=== PATIENT | male | born 1940 | race Caucasian/White ===

== ENCOUNTER 2025-10-21 08:49 | Emergency (ER) | payer MEDICARE, OTHER ==
[~2025-10-21] VITALS: Ht 152.4 cm; Wt 60.8 kg
[2025-10-21] MEDS: IV NS 0.9% 1,000 ML BAG IV ONE (09:23)
[2025-10-21] MEDS ORDERED: METOCLOPRAMIDE HCL 10 MG/2 ML VIAL ONE (09:24)
[2025-10-21] MEDS ORDERED: dexaMETHasone SOD PHOSPHATE 1 ML ONE (09:24)
[2025-10-21] MEDS ORDERED: ACETAMINOPHEN ES 500 MG TABLET ONE (09:25)
[2025-10-21] MEDS: dexaMETHasone SOD PHOSPHATE 10 MG/ML VIAL IV ONE (09:34)
[2025-10-21] MEDS: METOCLOPRAMIDE HCL 10 MG/2 ML VIAL IV ONE (09:34)
[2025-10-21] MEDS: ACETAMINOPHEN ES 500 MG TABLET PO ONE (09:34)
[2025-10-21 09:36] LABS: PLATELET COUNT (AUTO) 354 K/uL (150-450); RED BLOOD CELL COUNT(AUTO) 4.59 MIL/uL (4.5-6.0); RED CELL DISTRIBUTION WIDTH 12.9 % (11.5-15.0); WHITE BLOOD COUNT (AUTO) 4.8 K/uL (4.3-11.0)
[2025-10-21 09:38] LABS: CALCIUM, SERUM 8.5 mg/dL (8.5-10.1); CREATININE 0.7 mg/dL (0.6-1.3); SODIUM SERUM 131.0 mmol/L (136-145); UREA NITROGEN, BLOOD 11.0 mg/dL (7-18)
[2025-10-21 10:50] VITALS: BP 133/72; TEMP 98.4; O2SAT 98
[2025-10-21 11:01] LABS: APPEARANCE,URINE CLEAR (CLEAR); BLOOD, URINE TRACE-INTA Ery/uL (NEGATIVE); LEUKOCYTE ESTERASE ,URINE NEGATIVE (NEGATIVE); NITRITE, URINE NEGATIVE (NEGATIVE); UGLUCOSE NEGATIVE (NEGATIVE)
[2025-10-21 11:15] LABS: ADD URINE CULTURE NO; SQUAMOUS EPITHELIAL CELL,UR None Seen /HPF (None Seen)
== END 2025-10-21 10:50 | disposition home or self-care (01) ==
LOC: ER 08:58
DX: G43.909 Migraine, unspecified, not intractable, without status migrainosus (principal); I10 Essential (primary) hypertension; Z79.52 Long term (current) use of systemic steroids
CPT/HCPCS: 99285; 96374; 70450; 96375; 71045; 96361; 93005; 85025; 80048; 81001; 36415; 82962; J1100; J1200; J2765; J7030 ×2